=== PATIENT | female | born 1940 | race Caucasian/White ===

== ENCOUNTER → 2021-06-22 | Outpatient (CLI) | payer MEDICARE ==
[2021-02-10 11:30] VITALS: BP 162/81
[~2021-06-22] MED LIST: ASPI-630 PO; ATOR40TA59 PO; BUDE10.2 IH; HYDR-2145 PO; HYDR-2761 PO; ISOS30TA68 PO; LISI-379 PO; LISI10TA16 PO; MAGN400C PO; MELA5TAB20 PO; METF10007 PO; METO50TA6 PO; PRAS10TA9 PO; PROAIR RESPICL90 MCG IH; VIT1TABL34 PO; VIT1TABL8 PO; Vitamin D; glucosamine
--- NOTE | 2021-06-22 12:52 | PDOC1 ---
INITIAL PAIN CONSULT DATE OF SERVICE: DOS: DATE: 06/22/21 TIME: 12:46 CHIEF COMPLAINT: Chief Complaint: Left hip joint pain HISTORY OF PRESENT ILLNESS: 80-year-old female presents with history of pain in the left hip and low back for about 2 years getting worse with walking standing much worse with standing in one place or climbing on a stair or a step and put all her weight on her left leg patient reports significant pain not only in the posterior hip and gluteus but also into the groin significantly on the left side patient reports right side is generally not tender patient reports the pain is getting worse on the left side with walking standing better with sitting or laying down but has been waking her from sleep if she rolls onto her left side or change positions and happens about four times a night patient reports is not effective bowel bladder control but does affect ability to walk significantly she is not use any assistive devices however to ambulate this time patient has done some therapy in the distant past and is doing some stretching and strengthening on her own but has not decreased the pain significantly patient reports Aleve and hydrocodone which she is taking do decrease the pain fairly significantly by about 50% patient is had no formal physical therapy recently patient reports her disability rating 0-10 10 being worse is a five with family responsibilities recreation occupation sexual behavior and self-care zero with life support activity and to with social activity. Patient did have films of the hip showing a moderate degenerative change of the left hip with prominence of the left femoral head neck junction. Patient scribes pain is sharp and aching stabbing can be throbbing and shooting at times in the hip and groin is aching as well. Patient reports no loss of motor function but significant fatigability of the left leg with standing and walking. PAST MEDICAL HISTORY: PMH: COPD, hypertension, arthritis, diverticulosis, gastritis, coronary artery disease, skin cancer PREVIOUS SURGERIES: Past Surgical Hx: Coronary stent placement, bilateral cataract extractions CURRENT MEDICATIONS: Current Meds: Active Scripts Medications Dose Route/Sig Max Daily Dose Days Date Category Melatonin 5 Mg Tab.rapdis 1 Tab PO QHS 30 06/22/21 Reported Preservision Areds Tablet (Vit A/Vit C/Vit E/Zinc/Copper) 1 Each Tablet 1 Tab PO DAILY 30 06/22/21 Reported Magnesium (Magnesium Oxide) 400 Mg Capsule 1 Cap PO DAILY 06/22/21 Reported [Vitamin D] 2,000 Mg DAILY 06/22/21 Reported [glucosamine] 2,000 Mg DAILY 06/22/21 Reported Lisinopril 10 Mg Tablet 1 Tab PO DAILY 02/10/21 Reported Effient (Prasugrel Hcl) 10 Mg Tablet 10 Mg PO DAILYWBKFT 30 02/10/21 Rx Isosorbide Mononitrate Er (Isosorbide Mononitrate) 30 Mg Tab.er.24h 1 Tab PO DAILY 02/08/21 Reported Metoprolol Tartrate 50 Mg Tablet 1 Tab PO BID 02/08/21 Reported Metformin Hcl 1,000 Mg Tablet 1,000 Mg PO BIDWMEALS 02/08/21 Reported Symbicort 160-4.5 Mcg Inhaler (Budesonide/Formoterol Fumarate) 10.2 Gm Hfa.aer.ad 2 Puff IH BID 02/08/21 Reported Atorvastatin Calcium 40 Mg Tablet 40 Mg PO HS 02/08/21 Reported Proair Respiclick (Albuterol Sulfate) 90 Mcg Aer.pow.ba 2 Puff IH PRN Q4-6HRS PRN 02/08/21 Reported ALLERGIES; Allergies: Coded Allergies: No Known Drug Allergies (Unverified , 02/08/21) FAMILY HISTORY: Family Hx: Cancer, heart disease SOCIAL HISTORY: Social Hx: Patient drinks alcohol 2-3 times a year does not smoke not use any illegal illicit or recreational drugs is lives with her spouse lives locally in [facility] REVIEW OF SYSTEMS: ROS: Positive for those items mentioned in history of present illness, all systems are reviewed, otherwise negative ,and are complete full and well-documented on patient's chart. PHYSICAL EXAM: VS: Blood pressure is 137/72 pulse 67 respiration 16 temperature 90.5 F height is 5 foot 4-1/2 inches weight is 197 pounds PE: PHYSICAL EXAMINATION: GENERAL: The patient is awake, alert, oriented, appropriate, very pleasant in demeanor HEENT: Shows normocephalic, atraumatic. Extraocular movements are intact and symmetrical. Oral cavity: Mucous membranes moist and pink. NECK: Shows anterior throat supple without palpable lymphadenopathy noted. Swallow reflex symmetrical. CHEST: Shows normal on inspection. Breath sounds are clear bilaterally, distant but no rales or rhonchi. HEART: Shows S1, S2 clear. No murmurs auscultated. ABDOMEN: Soft, nontender, nondistended, obese. No palpable organomegaly is noted. BACK: Shows spine grossly in the midline. Normal-appearing cervical lordotic curvature. There is increased thoracic kyphosis, some flattening of the lumbar lordotic curvature. Lumbar paraspinous muscles show symmetrical on inspection, on palpation shows some moderate tenderness diffusely throughout the upper, middle and lower distribution of the paraspinous muscles bilaterally and also into the lower thoracic paraspinous musculature, firm and tender, but without specific trigger points, without radiation of pain. The patient has good rotational motion of the lumbar spine, both laterally as well as extension and flexion without significant difficulty. EXTREMITIES: Lower extremities show deep tendon reflexes 1+ in the patellar and tendo calcaneus tendons. Motor exam is five on a scale of 5 with right dorsiflexion, extension, quadriceps and hamstring flexion and four/5 on the left. Peripheral pulses are 1+ posterior tibial. No peripheral edema is noted bilaterally. Lower extremities are warm and dry to touch, equal in color and appearance. Bull's maneuver is positive on the left with external rotation and displacement posteriorly of the left hip right side is negative. SKIN: Shows warm and dry, good turgor. No edema. No sores, rashes or bruising throughout. IMPRESSION: Impression: 80-year-old female with approximate 2-year history increasing pain left hip and groin as well as low back X-rays left hip joint as noted Hypertension Arthritis Diverticulosis gastritis Type 2 diabetes Anticoagulation therapy Plan: Options were discussed the patient including serve medical managements physical therapies interventional techniques. Patient would like to pursue injection techniques, we discussed a left intra-articular hip joint injection using description as well as anatomical models described the procedure. We will contact patient's oven press tender to see if it is deemed safe and appropriate to hold her Effient for 7 days prior to intra-articular hip joint injection. Patient continue take the medication until we hear back from her oven press tender regarding this issue. QUENTIN JAMES MD Jun 22, 2021 12:52
== END | disposition home or self-care (01) ==
LOC: PNCL 09:29
PROVIDERS: ATTEND Anesthesiology
DX: M25.552 Pain in left hip (principal); J44.9 Chronic obstructive pulmonary disease, unspecified; I10 Essential (primary) hypertension; M19.90 Unspecified osteoarthritis, unspecified site; I25.10 Atherosclerotic heart disease of native coronary artery without angina pectoris; E11.9 Type 2 diabetes mellitus without complications; E78.00 Pure hypercholesterolemia, unspecified; K21.9 Gastro-esophageal reflux disease without esophagitis; Z85.828 Personal history of other malignant neoplasm of skin; Z87.891 Personal history of nicotine dependence; Z79.01 Long term (current) use of anticoagulants; Z79.84 Long term (current) use of oral hypoglycemic drugs; Z79.899 Other long term (current) drug therapy; Z98.890 Other specified postprocedural states; Z82.49 Family history of ischemic heart disease and other diseases of the circulatory system
CPT/HCPCS: 99214; G0463

== ENCOUNTER → 2021-07-12 | Outpatient (CLI) | payer MEDICARE ==
[2021-02-10 11:30] VITALS: BP 162/81
[~2021-07-12] MED LIST changes: +BUPIVACAINE MPF 0.25% 10 ML VIAL. ONE; +IOHEXOL 180 MG/ML 10 ML VIAL. ONE; +methylPREDNISolone ACETATE 80 MG/ML VIAL. ONE
--- NOTE | 2021-07-12 12:47 | PDOC ---
Progress Note - Pain Clinic Date of Service: DOS: DATE: 07/12/21 TIME: 12:44 Diagnosis: Dx: Left hip joint pain with osteoarthritis History or Present Illness: HPI: 80-year-old female with history pain left hip with walking standing and osteoarthritis of the hip now off of her Effient for 8 days patient reports no significant pain in the left hip with walking standing put all of her weight on 1 leg with pain rating to the left groin patient reports a 4 to scale 10 is worse over the past week 3 on average 1 its least and is a 3 today patient reports better with sitting or laying down generally does not awaken her from sleep at night but can if she lays on her left side patient reports she did try Medrol Dosepak which helped for the first few days but then was about the same on pain in her hip is aching and sharp shooting radiating into the left groin again with weightbearing almost essentially only with occasional with long time sitting greater than 1 hour can cause the pain to increase as well patient reports no deficits. Physical Exam: VS: Blood pressure 144/72 pulse 69 respirations 20 temperature 98.6 Height is 5 foot 4 inches weight is 194 pounds PE: PHYSICAL EXAMINATION: GENERAL: The patient is awake, alert, oriented, appropriate, very pleasant in demeanor HEENT: Shows normocephalic, atraumatic. Extraocular movements are intact and symmetrical. Oral cavity: Mucous membranes moist and pink. NECK: Shows anterior throat supple without palpable lymphadenopathy noted. Swallow reflex symmetrical. CHEST: Shows normal on inspection. Breath sounds are clear bilaterally. HEART: Shows S1, S2 clear. No murmurs auscultated. ABDOMEN: Soft, nontender, nondistended. No palpable organomegaly is noted. BACK: Shows spine grossly in the midline. Normal-appearing cervical lordotic curvature. There is slightly increased thoracic kyphosis, some minor flattening of the lumbar lordotic curvature. Lumbar paraspinous muscles show symmetrical on inspection, on palpation shows some moderate tenderness diffusely throughout the upper, middle and lower distribution of the paraspinous muscles without specific trigger points, without radiation of pain. The patient has good rotational motion of the lumbar spine, both laterally as well as extension and flexion without significant difficulty. EXTREMITIES: Lower extremities show deep tendon reflexes 1 in the patellar and tendo calcaneus tendons. Motor exam is 5 on a scale of 5 with right dorsiflexion, extension, quadriceps and hamstring flexion and 4/5 on the left. Peripheral pulses are 1+ posterior tibial. No peripheral edema is noted bilaterally. Lower extremities are warm and dry to touch, equal in color and appearance. Bull's maneuver is positive on the left with external rotation and posterior displacement right side is negative. SKIN: Shows warm and dry, good turgor. No edema. No sores, rashes or bruising throughout. Procedure: Procedure: Options were discussed with the patient. Patient chart was reviewed as her current medication regimen updated current review of systems updated today as well. We will proceed with a left intra-articular hip joint injection today with fluoroscopic guidance. Risks discussed including but not limited to bleeding infection possibility of intravascular injection sequelae spread local anesthetic numbness side effects steroid medication exposure fluoroscopy and poor results regarding pain control. Patient understands wished to proceed. Patient return to clinic in approximately 1 month follow-up, was counseled as return appointment, activity level, and side effect to be aware of. Medication Injected: Med Injected: Under sterile prep and drape patient in supine position patient's left hip was visualized using C-arm fluoroscopic guidance. Using 1% lidocaine area lateral to the hip joint was anesthetized and using direct fluoroscopic vision 22-gauge 5 inch Quincke needle with stylette was then advanced under direct fluoroscopic guidance into the left intra-articular hip joint. 3 cc of contrast was used to show good spread within the hip joint itself and without washout or uptake. At this time, 3 cc 0.25% bupivacaine and 80 mg Depo-Medrol was then injected into the hip joint. Needle was withdrawn and sterile bandage was applied. Patient tolerated procedure well and had no complications. Condition at Discharge: Condition at Discharge: Condition at discharge stable, patient tolerated the procedure well and had no complications. QUENTIN JAMES MD Jul 12, 2021 12:47
--- NOTE | 2021-07-12 12:48 | PDOC4 ---
Procedure Note: ICD 10 Code: ICD 10 Code: M16.12 M2 5.552 Procedure Note: Patient was consented for left intra-articular hip joint injection with fluoroscopic guidance. Risk were discussed including but not limited to bleeding infection possibility of intravascular injection sequelae spread of local anesthetic and numbness side effects of steroid medication exposure fluoroscopy and poor results regarding pain control. Patient understands wished to proceed. Under sterile prep and drape patient in supine position patient's left hip was visualized using C-arm fluoroscopic guidance. Using 1% lidocaine area lateral to the hip joint was anesthetized and using direct fluoroscopic vision 22-gauge 5 inch Quincke needle with stylette was then advanced under direct fluoroscopic guidance into the left intra-articular hip joint. 3 cc of contrast was used to show good spread within the hip joint itself and without washout or uptake. At this time, 3 cc 0.25% bupivacaine and 80 mg Depo-Medrol was then injected into the hip joint. Needle was withdrawn and sterile bandage was applied. Patient tolerated procedure well and had no complications. QUENTIN JAMES MD Jul 12, 2021 12:48
== END | disposition home or self-care (01) ==
LOC: PNCL 11:06
PROVIDERS: ATTEND Anesthesiology
DX: M16.12 Unilateral primary osteoarthritis, left hip (principal); I25.10 Atherosclerotic heart disease of native coronary artery without angina pectoris; I10 Essential (primary) hypertension; E78.00 Pure hypercholesterolemia, unspecified; J44.9 Chronic obstructive pulmonary disease, unspecified; K21.9 Gastro-esophageal reflux disease without esophagitis; E11.9 Type 2 diabetes mellitus without complications; Z85.828 Personal history of other malignant neoplasm of skin; Z87.891 Personal history of nicotine dependence; Z79.84 Long term (current) use of oral hypoglycemic drugs; Z79.899 Other long term (current) drug therapy; Z98.890 Other specified postprocedural states
CPT/HCPCS: 20610; 77002; J1040; J3490; Q9965

== ENCOUNTER → 2021-09-07 | Outpatient (CLI) | payer MEDICARE ==
[2021-02-10 11:30] VITALS: BP 162/81
[~2021-09-07] MED LIST changes: -BUPIVACAINE MPF 0.25% 10 ML VIAL. ONE; -IOHEXOL 180 MG/ML 10 ML VIAL. ONE; -methylPREDNISolone ACETATE 80 MG/ML VIAL. ONE
--- NOTE | 2021-09-07 09:28 | PDOC ---
Progress Note - Pain Clinic Date of Service: DOS: DATE: 09/07/21 TIME: 09:24 Diagnosis: Dx: Left hip joint pain with osteoarthritis History or Present Illness: HPI: [id number] female returns for follow-up status post left intra-articular hip joint injection patient reports good relief for about 1 month left near 100% but the pain returned after about a month very gradually still not quite to baseline but still significant pain in the left hip with walking standing weightbearing putting all of her weight on her left leg such as stairs or steps and climbing patient reports no loss of motor function but significant tenderness with walking standing with pain in the posterior gluteus lateral thigh and radiating into the left groin with weightbearing. Patient reports pain is a 8 on scale 10 at its worst is a 5 on average to its least and is a 5 today. Patient reports no bowel or bladder incontinence but with sitting or laying down does not generally awaken her from sleep at night patient scribes the pain is aching and dull can be tight and shooting cramping stabbing radiating into the anterior thigh on the left side as well as the groin. Patient reports she is taking Aleve which helps only very minimally also arthritis strength Tylenol which is not helpful significantly at all. Discussed options with her and with her history of osteoarthritis and start new prescription medication of meloxicam 15 mg 1 tablet daily patient was given instructions well side effects beware with the new prescription medication. Physical Exam: VS: Blood pressure is 150/56 pulse 66 respirations 18 temperature 98.1 F height is 5 feet 4 inches weight 197 pounds. PE: PHYSICAL EXAMINATION: GENERAL: The patient is awake, alert, oriented, appropriate, very pleasant in demeanor HEENT: Shows normocephalic, atraumatic. Extraocular movements are intact and symmetrical. Oral cavity: Mucous membranes moist and pink. NECK: Shows anterior throat supple without palpable lymphadenopathy noted. Swallow reflex symmetrical. CHEST: Shows normal on inspection. Breath sounds are clear bilaterally, no rales rhonchi or wheezes auscultated. HEART: Shows S1, S2 clear. No murmurs auscultated. ABDOMEN: Soft, nontender, nondistended. No palpable organomegaly is noted. BACK: Shows spine grossly in the midline. Normal-appearing cervical lordotic curvature. There is slightly increased thoracic kyphosis, some minor flattening of the lumbar lordotic curvature. Lumbar paraspinous muscles show symmetrical on inspection, on palpation shows some moderate tenderness diffusely throughout the upper, middle and lower distribution of the paraspinous muscles without specific trigger points, without radiation of pain. The patient has good rotational motion of the lumbar spine, both laterally as well as extension and flexion without significant difficulty. No tenderness over the spinous processes, sacrum or sacroiliac regions. EXTREMITIES: Lower extremities show deep tendon reflexes 1+ in the patellar and tendo calcaneus tendons. Motor exam is 5 on a scale of 5 with right dorsiflexion, extension, quadriceps and hamstring flexion and 4/5 on the left. Peripheral pulses are 1+ posterior tibial. No peripheral edema is noted bilaterally. Lower extremities are warm and dry to touch, equal in color and appearance. Patient has positive Bull's maneuver on the left only. SKIN: Shows warm and dry, good turgor. No edema. No sores, rashes or bruising throughout. Procedure: Procedure: Options were discussed with patient. Patient's old chart was reviewed as her current medication regimen updated current review of systems updated today as well. We will hold on any further injections at this time per patient's choice. We discussed her medications and again we will start new prescription medication of meloxicam 15 mg daily. Patient is once again given instruction as well as side effects beware with the medication. Patient wishes to follow-up with her orthopedic surgeon and will follow up after that appointment with our office as well. Medication Injected: Med Injected: None Condition at Discharge: Condition at Discharge: Condition at discharge is stable. QUENTIN JAMES MD Sep 07, 2021 09:28
== END | disposition home or self-care (01) ==
LOC: PNCL 08:42
PROVIDERS: ATTEND Anesthesiology
DX: M16.11 Unilateral primary osteoarthritis, right hip (principal); I10 Essential (primary) hypertension; E78.00 Pure hypercholesterolemia, unspecified; J44.9 Chronic obstructive pulmonary disease, unspecified; K21.9 Gastro-esophageal reflux disease without esophagitis; E11.9 Type 2 diabetes mellitus without complications; Z85.828 Personal history of other malignant neoplasm of skin; Z79.84 Long term (current) use of oral hypoglycemic drugs; Z79.899 Other long term (current) drug therapy; Z98.890 Other specified postprocedural states; Z87.891 Personal history of nicotine dependence
CPT/HCPCS: 99212; G0463

== ENCOUNTER → 2021-10-18 | Outpatient (CLI) | payer MEDICARE ==
[2021-02-10 11:30] VITALS: BP 162/81
[~2021-10-18] MED LIST changes: +CHOL5000 PO; +GLUC1TAB33 PO; +MELO7.5T29 PO; +UBID50TA PO
[2021-10-18 09:02] LABS: BASO # 0.1 x10^3/uL (0.0-0.2); BASO % 1 % (0-3); EOS # 0.2 x10^3/uL (0.0-0.7); EOS % 3 % (0-3); HEMATOCRIT 35.8 % (36.0-47.0); HEMOGLOBIN 11.6 g/dL (12.0-15.5); LYMPH % 35 % (24-48); MEAN CORPUSCULAR HEMOGLOBIN 29 pg (25-35); MEAN CORPUSCULAR HGB CONC 32 g/dL (31-37); MEAN CORPUSCULAR VOLUME 91 fL (79-100); MONO # 0.6 x10^3/uL (0.0-1.1); MONO % 7 % (0-9); NEUT # 4.7 x10^3/uL (1.8-7.7); NEUT % 54 % (31-73); PLATELET COUNT 275 x10^3/uL (140-400); RED BLOOD COUNT 3.93 x10^6/uL (3.50-5.40); RED CELL DISTRIBUTION WIDTH 14.4 % (11.5-14.5); WHITE BLOOD COUNT 8.6 x10^3/uL (4.0-11.0)
[2021-10-18 09:11] LABS: PROTHROMBIN TIME PATIENT 12.4 SEC (11.7-14.0)
[2021-10-18 09:21] LABS: ALBUMIN 3.4 g/dL (3.4-5.0); CALCIUM 8.6 mg/dL (8.5-10.1); CREATININE 1.1 mg/dL (0.6-1.0); GFR 47.6; POTASSIUM 4.2 mmol/L (3.5-5.1)
--- NOTE | 2021-10-18 15:54 | RAD ---
EXAMINATION: XR CHEST 2V CLINICAL HISTORY: Preoperative clearance. EXAM DATE/TIME: 10/18/2021 12:43 PM COMPARISON: 02/07/2021 FINDINGS: Lines, Tubes, and Devices: None. Cardiomediastinal Silhouette: Heart size at upper limits of normal. Aortic atherosclerotic calcificat ion. Lungs and Pleura: Mild bibasilar opacities. No definite pleural effusion. Pulmonary vasculature unrem arkable. Bones and Soft Tissues: Degenerative changes and partially visualized S-shaped scoliotic curvature in the thoracolumbar spine. IMPRESSION: Mild by basilar opacities, possibly subsegmental atelectasis and/or scarring. Electronically signed by: Nic Dozier DO (10/18/2021 3:52 PM) [id number]
[2021-10-19 00:08] LABS: HEMOGLOBIN A1C 7.4 % (4.8-5.6)
== END ==
LOC: SURGPAT 12:00
PROVIDERS: ATTEND Orthopaedic Surgery
DX: Z01.818 Encounter for other preprocedural examination (principal); I70.0 Atherosclerosis of aorta; M41.85 Other forms of scoliosis, thoracolumbar region; M16.12 Unilateral primary osteoarthritis, left hip
CPT/HCPCS: 36415; 71046; 80048; 82040; 82306; 83036; 85025; 85610; 85651; 85730; 87641

== ENCOUNTER 2021-11-08 08:35 | Day surgery (SDC) | payer MEDICARE ==
[2021-10-20 11:54] VITALS: BP 163/74
[~2021-11-08] VITALS: Ht 165.1 cm; Wt 88.6 kg
[~2021-11-08 08:35] MED LIST changes: +ACETAMINOPHEN 500 MG TABLET PO PRN; +GABAPENTIN 300 MG CAPSULE. PO PRN; +HYDROmorphone 2 MG/ML INJ. IVP PRN; +IV RINGERS,LACTATED 1000ML 1,000 ML IV SCH; +MELOXICAM 7.5 MG TABLET PO PRN; +MORPHINE SULFATE 2 MG/ML INJ. IVP PRN; +PROCHLORPERAZINE 10 MG/2 ML VIAL. IVP PRN; +TRANEXAMIC ACID 1,000 MG in IV NS 50ML -- 1ST BAG INJ ONE; +TRANEXAMIC ACID 1,000 MG in IV NS 50ML -- 2ND BAG INJ ONE; +TV=62ml MORPHINE 5 MG, KETOROLAC 30 MG, ROPIV, EPI INT ART ONE; +fentaNYL PF VIAL 100 MCG/2 ML VIAL IVP PRN
[2021-11-08 09:08] VITALS: BP 190/89
[2021-11-08] MEDS ORDERED: SCOPOLAMINE 1.5MG PATCH. TD ONE (09:15)
[2021-11-08] MEDS ORDERED: INSULIN LISPRO 100 UNIT/ML 3ML VIAL for OP,RR ONLY. SQ PRN (09:30)
[2021-11-08] MEDS ORDERED: INSULIN LISPRO 100 UNIT/ML 3ML VIAL for OP,RR ONLY. SQ ONE (09:30)
[2021-11-08] MEDS ORDERED: ONDANSETRON PF 4 MG/2 ML VIAL. ONE (09:39)
[2021-11-08] MEDS ORDERED: PROPOFOL 10 MG/ML (20ML) VIAL. IV ONE (09:39)
[2021-11-08] MEDS ORDERED: SEVOFLURANE 61 TO 120 MINUTES. IH ONE (09:39)
[2021-11-08] MEDS ORDERED: DEXAMETHASONE SOD PHOS 4 MG/ML VIAL ONE (09:39)
[2021-11-08] MEDS ORDERED: PHENYLEPHRINE 10 MG/ML VIAL. ONE (09:39)
[2021-11-08] MEDS ORDERED: fentaNYL PF VIAL 100 MCG/2 ML VIAL ONE (09:39)
[2021-11-08] MEDS ORDERED: LIDOCAINE 2% PF 5 ML VIAL. ONE (09:39)
[2021-11-08] MEDS ORDERED: TRANEXAMIC ACID in NS IVPB 100 ML ONE (10:11)
[2021-11-08] MEDS ORDERED: SUCCINYLCHOLINE 200 MG/10 ML VIAL. ONE (10:44)
[2021-11-08] MEDS ORDERED: 0.9 % SODIUM CHLORIDE 10 ML DISP.SYRIN. IV PRN (10:45)
[2021-11-08] MEDS ORDERED: oxyCODONE IR 5 MG TABLET PO PRN (10:45)
[2021-11-08] MEDS ORDERED: IV DEXTROSE 5% 250 ML BAG. IV PRN (10:45)
[2021-11-08] MEDS ORDERED: diphenhydrAMINE 50 MG/ML VIAL IVP PRN (10:45)
[2021-11-08] MEDS ORDERED: DEXTROSE 50% 25 GM / 50ML DISP.SYRIN. IV PRN (10:45)
[2021-11-08] MEDS ORDERED: MORPHINE SULFATE 2 MG/ML INJ. IVP PRN (10:45)
[2021-11-08] MEDS ORDERED: CALCIUM CARBONATE 500 MG TAB.CHEW PO PRN (10:45)
--- NOTE | 2021-11-08 10:50 | PDOC4 ---
SHANA SALDAÑA Nov 08, 2021 10:50
[2021-11-08] MEDS ORDERED: ROCURONIUM 50 MG/5 ML VIAL. ONE (10:52)
--- NOTE | 2021-11-08 10:52 | NUR ---
Scopolamine patch was removed after further discussion with anesthesia regarding post op N/V. Patient clarified reaction is usually after received nitrous gas after dental procedures only.
--- NOTE | 2021-11-08 11:14 | DISCH ---
DISCHARGE INSTRUCTIONS Condition on Discharge Condition on Discharge: Stable Activity After Discharge Activity Instructions for Disc: No restrictions, Resume previous activity, Activity as tolerated Diet after Discharge Diet after Discharge: Cardiac, Diabetic No Calorie Level Contacting the after DC Call your doctor for: If your condition worsens Follow-Up Follow up with: Ortho clinic to reschedule surgery. [phone] SHANA SALDAÑA Nov 08, 2021 11:14
[2021-11-08] MEDS ORDERED: SUGAMMADEX SODIUM 200 MG/2 ML VIAL. IVP ONE (11:15)
[2021-11-08] MEDS ORDERED: ONDANSETRON PF 4 MG/2 ML VIAL. IVP SCH (12:00)
[2021-11-08] MEDS ORDERED: ONDANSETRON ODT 4 MG TAB.RAPDIS. PO SCH (12:00)
[2021-11-08 12:02] VITALS: BP 136/78
--- NOTE | 2021-11-08 14:58 | HP ---
DATE OF SERVICE: 11/08/2021 ADMIT DATE: 11/08/2021 REASON FOR EVALUATION TODAY: Left hip pain, severe degenerative joint disease of left hip. BRIEF HISTORY: The patient is an 81-year-old female who has had unremitting pain in her left hip, has undergone multiple nonoperative interventions, but due to the fact that she is having significant difficulties with activities of daily living, she would like to undergo a left total hip arthroplasty. She has been told in the past that her only option is surgical, since nonsurgical is not helping at this point and she is not getting sleep or having the ability again to do ADLs. REVIEW OF SYSTEMS: Unremarkable other than her current musculoskeletal symptoms. MEDICAL HISTORY: Hypertension, hyperlipidemia, type 2 diabetes, COPD, coronary artery disease. SURGICAL HISTORY: She denies any past surgical history. FAMILY HISTORY: Hypertension. SOCIAL HISTORY: She is a former smoker, tobacco user, but not currently over the last 10+ years. No alcohol use. MEDICATIONS: Include meloxicam, aspirin, prasugrel, metoprolol as well as lisinopril, isosorbide mononitrate. MEDICATION ALLERGIES: No known drug allergies. PHYSICAL EXAMINATION: She is 66 inches tall, 198 pounds. She has regular rate and rhythm and lung tovar are clear to auscultation in all tovar. Abdomen is soft and nontender. The hip has 0 degrees of internal rotation, approximately 15 degrees of external rotation and abduction. Flexion, has slight contracture, but flexing is up to 95 degrees at this point, but very painful throughout the arc of motion, especially with any internal and external rotation. There is no atrophy of musculature, left lower extremity versus right lower extremity. Distal neurovascular status appears to be fully intact at this point. IMAGING DATA: X-rays show a severe amount of degenerative changes to the left hip. IMPRESSION: Severe degenerative joint disease, left hip. PLAN: At this time, we have gone over again the risks, complications as well as benefits and expectations of surgery, postoperative protocol and followup. She has talked with Anesthesia this morning. We will go ahead and proceed with a left total hip arthroplasty at this point. JUNIOR/EVY DR: Hayder TID: [id number]
[2021-11-09] MEDS ORDERED: ENOXAPARIN 40 MG/0.4 ML SYRINGE. SQ SCH (06:00)
[2021-11-09] MEDS ORDERED: MAGNESIUM HYDROXIDE 2,400 MG/30 ML ORAL.SUSP. PO PRN (06:00)
[2021-11-09] MEDS ORDERED: SENNOSIDES/DOCUSATE 8.6/50MG TABLET. PO SCH (09:00)
[2021-11-09] MEDS ORDERED: BISACODYL 10 MG SUPP.RECT. PR PRN (16:00)
[2021-11-12] MEDS ORDERED: ACETAMINOPHEN 500 MG TABLET PO SCH (09:00)
--- NOTE | 2021-11-12 12:13 | PDOC4 ---
OPERATIVE NOTE Date: Date: Nov 08, 2021 Pre-Op Diagnosis: djd left hip Post-Op Diagnosis: same Procedure Performed: Surgery could not be performed secondary to the patient being unable to be intubated by the department of anesthesia after multiple attempts. It was therefore safer for the patient to be returned back to postoperative area and unfortunately procedure not proceeding Surgeon: Jj Anesthesia Type: General attempted Blood Loss: 0 Specimans Obtained: 0 Findings: Surgery not performed ARIES RAMOS Jr. DO Nov 12, 2021 12:13
== END 2021-11-08 12:18 | disposition home or self-care (01) ==
LOC: SURG 08:35
PROVIDERS: ATTEND Orthopaedic Surgery
DX: M25.552 Pain in left hip (principal); Z53.8 Procedure and treatment not carried out for other reasons; M16.12 Unilateral primary osteoarthritis, left hip; I10 Essential (primary) hypertension; E11.9 Type 2 diabetes mellitus without complications; I25.10 Atherosclerotic heart disease of native coronary artery without angina pectoris; J44.9 Chronic obstructive pulmonary disease, unspecified; E78.5 Hyperlipidemia, unspecified; K21.9 Gastro-esophageal reflux disease without esophagitis; Z85.828 Personal history of other malignant neoplasm of skin; Z79.84 Long term (current) use of oral hypoglycemic drugs; Z79.899 Other long term (current) drug therapy; Z98.890 Other specified postprocedural states; Z82.49 Family history of ischemic heart disease and other diseases of the circulatory system
CPT/HCPCS: 36415; 82962; 86850; 86900; 86901; A4213; A4930; A6258; A6550; J0171; J0330; J0690; J1100; J1815; J1885; J2270; J2370; J2405; J2704; J2795; J3010; J3490

== ENCOUNTER 2021-12-06 06:53 | Observation (INO) | payer MEDICARE ==
[~2021-12-06] VITALS: Ht 162.6 cm; Wt 88.6 kg
[2021-12-06] VITALS (9 sets, daily range): BP systolic 119–172; BP diastolic 54–77
[~2021-12-06 06:53] MED LIST changes: -HYDROmorphone 2 MG/ML INJ. IVP PRN; -IV RINGERS,LACTATED 1000ML 1,000 ML IV SCH; -MORPHINE SULFATE 2 MG/ML INJ. IVP PRN; -PROCHLORPERAZINE 10 MG/2 ML VIAL. IVP PRN; -TRANEXAMIC ACID 1,000 MG in IV NS 50ML -- 2ND BAG INJ ONE; -fentaNYL PF VIAL 100 MCG/2 ML VIAL IVP PRN
[2021-12-06] MEDS ORDERED: IV RINGERS,LACTATED 1000ML 1,000 ML IV SCH (07:00)
[2021-12-06] MEDS ORDERED: TRANEXAMIC ACID in NS IVPB 100 ML ONE (07:21)
[2021-12-06] MEDS ORDERED: MIDAZOLAM HCL/PF 2 MG/2 ML VIAL. ONE (07:39)
[2021-12-06] MEDS ORDERED: TRANEXAMIC ACID 1,000 MG in IV NS 50ML -- 2ND BAG INJ ONE (08:00)
[2021-12-06] MEDS ORDERED: PROPOFOL 10 MG/ML (20ML) VIAL. IV ONE (08:59)
[2021-12-06] MEDS ORDERED: DEXTROSE 50% 25 GM / 50ML DISP.SYRIN. IV PRN (09:00)
[2021-12-06] MEDS ORDERED: diphenhydrAMINE 50 MG/ML VIAL IVP PRN (09:00)
[2021-12-06] MEDS ORDERED: 0.9 % SODIUM CHLORIDE 10 ML DISP.SYRIN. IV PRN (09:00)
--- NOTE | 2021-12-06 09:42 | HP ---
DATE OF SERVICE: 12/06/2021 ADMIT DATE: 12/06/2021 PREOP HISTORY AND PHYSICAL CHIEF COMPLAINT: Left hip pain, severe. BRIEF HISTORY: The patient is an 81-year-old female who presents today with significant and unremitting left hip pain, which causes her to have difficulty with activities of daily living at this point. No injuries at this point but she has had multiple nonsurgical treatments including a steroid injection as well as with anti-inflammatories, ice and modification of activities, etc. She has significant nocturnal pain as well as pain with activities which are again significantly diminished secondary to that pain. REVIEW OF SYSTEMS: Unremarkable other than her current musculoskeletal complaints. PAST MEDICAL HISTORY: Hypertension, hyperlipidemia, type 2 diabetes, COPD, coronary artery disease and stent placement. PAST SURGICAL HISTORY: None. HOSPITALIZATIONS: For her shortness of breath and chest pressure. FAMILY HISTORY: Hypertension. SOCIAL HISTORY: The patient is a former smoker; however, has not smoked in over 10 years. No alcohol use at this point. MEDICATIONS: Include meloxicam and aspirin as well as mononitrate extended release. MEDICATION ALLERGIES: None. PHYSICAL EXAMINATION: She is 66 inches tall. She is 196 pounds. She is having significant pain with even log rolling of that hip, but flexion is up to 90 degrees with no flexion contracture noted at this point. However, she has 0 to may be 5 degrees of internal rotation at the most. External rotation is about 15 degrees today with abduction at about 15-20 degrees as well. There is significant pain throughout the arc of motion at this point as well as a significantly antalgic gait; however, no muscular changes of the left versus right lower extremity. Distal neurovascular status is fully intact. Heart is regular rate and rhythm. HEENT is within normal limits. Abdomen is soft and nontender. No other abnormalities noted. IMPRESSION: Severe degenerative joint disease, left hip. PLAN: At this time, we have talked with her at length about the treatment options again today as well as had her talk with Anesthesia. Due to the difficulty with intubation last time, they will proceed with a spinal anesthetic; however, they have prepared for the possibility of intubation if necessary. They have already gone over the risks and benefits of that, I have gone over the risks, complications as well as benefits and expectations of surgery, postoperative protocol and followup for left total hip arthroplasty. We will proceed as soon as she is done talking with Anesthesia. EWJ/TACO/MARIA DR: JORGE/azucena TID: [id number]
[2021-12-06] MEDS: ASPIRIN 325 MG TABLET PO SCH ×2 (10:00→21:37)
[2021-12-06] MEDS: SENNOSIDES/DOCUSATE 8.6/50MG TABLET. PO SCH (10:00)
--- NOTE | 2021-12-06 10:15 | PDOC4 ---
OPERATIVE NOTE Date: Date: December 06, 2021 Pre-Op Diagnosis: Severe degenerative joint disease left hip Post-Op Diagnosis: Same Procedure Performed: Left total hip arthroplasty Surgeon: Jj Anesthesia Type: Spinal with IV sedation Blood Loss: 150 cc Specimans Obtained: Left femoral head Findings: Size 4 femur 50 mm acetabular shell D acetabular liner -536 mm femoral head Complications: None Operative Note: Patient was taken to the operative suite where given a spinal anesthetic placed in a lateral decubitus position with the affected left hip upright. Pads were placed in appropriate position as well as an axillary roll. The left hip was then prepped and draped in a sterile fashion a standard anterolateral approach to the hip was undertaken with incision through skin subcutaneous tissues superficial bleeding was coagulated using a Bovie knife and this was taken down to the iliotibial band which was split in line with the skin incision. This was retracted anteriorly and posteriorly and following this gluteus medius was identified and inferior one third was removed at this point. This was retracted superiorly. In the Capsule was then identified and opened up in an H fashion. There were noted to be severe changes on the femoral head as well as significant bone osteophytes from the femoral head as well hip was manually dislocated using a bone hook. 1 fingerbreadth above the lesser trochanter and marked on the area just under the greater trochanter area cut was made in the femur to remove the femoral head and neck. This was measured noted to be 47 mm. Therefore after the labrum was removed and retractors were placed in appropriate position orientation reaming began at size 45 and continued up to size 50 due to the patient's age and bone quality 50 was noted be the most appropriate size therefore the after the good bleeding was noted in the acetabular side and this had been deep and slightly the femoral component was then impacted noted to be stable and secure within the acetabulum for further fixation 2 screws 1 of 30 and 1 of 25 mm in length were placed having good purchase. The liner was then placed. This was a neutral the liner. Following this the leg was placed in a side bag. This was opened up along near the proximal femur with a skiver box toe followed by the IM guide. These were subsequently removed and then following this broaching began at size 0 and continued all the way up to size 4 which is noted to be the most appropriate size filling the canal. Trialing with -5 revealed this to be the best stability and extremes in range of motion pistoning was excellent with 2 to 3 mm at maximum distance. This was stable and secure in all planes. This was then manually dislocated all trial components were removed from the femur the femoral component was then impacted noted to be stable and secure femoral head was then impacted -5mm 36 mm outer diameter head and then this was noted to be reduced appropriately within the cup this is noted be again extremes of range of motion very good stability and excellent stability. Pistoning again was very good therefore this was copiously irrigated and suctioned dry. This is and irrigated with Betadine solution followed by sterile saline. Once this was cleared the capsule was reapproximated using Ethibond the gluteus medius was reattached to its original insertion site along the area of the femur and then further irrigation and suctioning dry was done. The IT band was then closed in a running fashion. The superficial tissues and skin was reapproximated local was placed sterile dressings applied patient was then taken from the operative bed to the postoperative bed taken to the PACU in stable condition ARIES RAMOS Jr. DO December 06, 2021 10:15
[2021-12-06] MEDS: MORPHINE SULFATE 2 MG/ML INJ. IVP PRN ×4 (11:41→21:38)
[2021-12-06] MEDS: ONDANSETRON ODT 4 MG TAB.RAPDIS. PO SCH ×2 (12:00→18:25)
[2021-12-06] MEDS ORDERED: ONDANSETRON PF 4 MG/2 ML VIAL. IVP SCH (12:00)
[2021-12-06] MEDS: oxyCODONE IR 5 MG TABLET PO PRN (13:22)
[2021-12-06] MEDS: IV RINGERS,LACTATED 1000ML 1,000 ML IV SCH ×2 (14:11→23:55)
--- NOTE | 2021-12-06 16:12 | RAD ---
XR LT HIP (WITH OR WITHOUT PELVIS) 2 VIEWS History: Reason: s/p VISH / Spl. Instructions: / History: Technique: AP view the pelvis and additional view of the left hip. Comparison: None. Findings: Status post left total hip arthroplasty. Expected postoperative findings. No dislocation. No acute fr acture. Mild pubic symphysis degenerative changes. Impression: 1. Status post left total hip arthroplasty. No immediate hardware complications. Electronically signed by: Vikas Tyler DO (12/06/2021 4:10 PM) [id number]
[2021-12-07] MEDS: oxyCODONE IR 5 MG TABLET PO PRN ×4 (00:56→22:22)
[2021-12-07 03:00] VITALS: BP 137/63
[2021-12-07] MEDS: ONDANSETRON ODT 4 MG TAB.RAPDIS. PO SCH ×2 (05:56)
[2021-12-07] MEDS ORDERED: MAGNESIUM HYDROXIDE 2,400 MG/30 ML ORAL.SUSP. PO PRN (06:00)
[2021-12-07 07:00] VITALS: BP 141/61
[2021-12-07 08:24] LABS: HEMATOCRIT 30.2 % (36.0-47.0); HEMOGLOBIN 9.9 g/dL (12.0-15.5); RED BLOOD COUNT 3.27 x10^6/uL (3.50-5.40); RED CELL DISTRIBUTION WIDTH 13.3 % (11.5-14.5)
[2021-12-07 08:29] LABS: CALCIUM 7.8 mg/dL (8.5-10.1); CREATININE 1.1 mg/dL (0.6-1.0); GFR 47.6; POTASSIUM 4.6 mmol/L (3.5-5.1)
[2021-12-07] MEDS: ASPIRIN 325 MG TABLET PO SCH ×2 (08:39→22:21)
[2021-12-07] MEDS: SENNOSIDES/DOCUSATE 8.6/50MG TABLET. PO SCH (08:39)
--- NOTE | 2021-12-07 08:42 | PDOC ---
PROGRESS NOTES Date of Service DATE: 12/07/21 TIME: 08:29 Subjective Subjective POD #1 s/p L primary VISH Pt seen and examined this AM. Awake and alert sitting upright in recliner. Pain 3/10. Tolerating PO intake. Reports episode of dizziness with mobilization to bathroom yesterday, this has resolved. 1500 on IS. Voiding without difficulty. No acute events overnight. Objective Vital Signs Vital Signs Date Time Temp Pulse Resp B/P (MAP) Pulse Ox O2 Delivery O2 Flow Rate FiO2 12/07/21 07:52 Room Air 12/07/21 03:00 77 18 137/63 (87) 98 12/06/21 23:00 98.4 98.4 Physical Exam Orthopedic exam L hip: dressings intact. no drainage or discharge. Compartments soft and compressible. Calf non tender. Negative Jeevan's sign. Sensation to light touch intact. EHL/FHL intact. Plantarflexion/dorsiflexion intact. Cap refill brisk. LLE warm and perfused. No evidence of thrombus. Labs Laboratory Tests Test 12/06/21 07:25 12/06/21 11:30 12/07/21 06:50 POC SARS CoV-2 Antigen Negative (NEGATIVE) Glucose (Fingerstick) 112 mg/dL (70-99) White Blood Count 9.0 x10^3/uL (4.0-11.0) Red Blood Count 3.27 x10^6/uL (3.50-5.40) Hemoglobin 9.9 g/dL (12.0-15.5) Hematocrit 30.2 % (36.0-47.0) Mean Corpuscular Volume 92 fL (79-100) Mean Corpuscular Hemoglobin 30 pg (25-35) Mean Corpuscular Hemoglobin Concent 33 g/dL (31-37) Red Cell Distribution Width 13.3 % (11.5-14.5) Platelet Count 213 x10^3/uL (140-400) Laboratory Tests Test 12/06/21 11:30 12/07/21 06:50 Glucose (Fingerstick) 112 mg/dL (70-99) White Blood Count 9.0 x10^3/uL (4.0-11.0) Red Blood Count 3.27 x10^6/uL (3.50-5.40) Hemoglobin 9.9 g/dL (12.0-15.5) Hematocrit 30.2 % (36.0-47.0) Mean Corpuscular Volume 92 fL (79-100) Mean Corpuscular Hemoglobin 30 pg (25-35) Mean Corpuscular Hemoglobin Concent 33 g/dL (31-37) Red Cell Distribution Width 13.3 % (11.5-14.5) Platelet Count 213 x10^3/uL (140-400) Assessment Assessment 81 y/o F primary OA L hip s/p L primary VISH 12/06 - Jj * WBAT LLE * AL hip precautions x6 weeks post-op * Pain control (DC IV pain meds this morning) * DVT ppx (ASA 325mg BID) * Post-op abx (Cefazolin) * VSS stable this AM * AM labs (CBC, BMP) pending * ICE operative hip prn * Maintain surgical dressing L hip * PT/OT for mobilization, gait training and fall prevention * CM for discharge planning; pt lives at home with , will have work with therapy services today, anticipate home with home health services later this afternoon * Follow up with orthopedic clinic in 2 weeks. Call to schedule prior to d/c [phone]. Justicifation of Admission Dx: Justifications for Admission: Justification of Admission Dx: Yes SHANA SALDAÑA December 07, 2021 08:42
[2021-12-07 11:00] VITALS: BP 115/61
[2021-12-07] MEDS ORDERED: ALBUTEROL SULFATE 2.5 MG/3 ML NEBU. NEB PRN (11:45)
[2021-12-07] MEDS ORDERED: NON FORMULARY ITEM (Albuterol Sulfate (Proair Respiclick) 2 PUFF) IH PRN (11:45)
[2021-12-07] MEDS: ACETAMINOPHEN 500 MG TABLET PO SCH ×2 (12:46→17:54)
[2021-12-07 15:00] VITALS: BP 142/56
[2021-12-07] MEDS ORDERED: BISACODYL 10 MG SUPP.RECT. PR PRN (16:00)
[2021-12-07] MEDS: ALBUTEROL SULFATE 2.5 MG/3 ML NEBU. NEB SCH ×2 (16:05→20:00)
--- NOTE | 2021-12-07 17:10 | PATHOLOGY ---
[facility] Accession Number: [id number] . 01 Material submitted: . hip - L HIP BONE AND TISSUE . 01 Clinician provided ICD-10: M16.12 . 01 Clinical history: . SEVERE DEGENERATIVE JOINT DISEASE OA . 02 Diagnosis: Femoral head, left total hip arthroplasty: - Advanced degenerative arthritis. (JPM:pit; 12/07/2021) QTP 12/07/2021 1356 Local . 02 Electronically signed: . Cabrera Brandon MD, Pathologist NPI- [id number] . 01 Gross description: . The specimen is received in formalin, labeled "Hamdia Melgar hip bone tissue". Received is a femoral head with attached femoral neck measuring 4.5 x 4.5 x 4.4 cm in greatest dimensions. The articular surface is smooth to granular in appearance with evidence of eburnation. Moderate osteophytic lipping is identified. Sectioning reveals yellow-bansal cut surfaces with no grossly distinct nodules or lesions. The specimen is submitted representatively in cassette A1, following decalcification. ([facility]; 12/06/2021) QAC/QAC 12/06/2021 1528 Local . 02 Pathologist provided ICD-10: M16.12 . 02 CPT . 165216, [id number] Specimen Comment: A courtesy copy of this report has been sent to [phone] Specimen Comment: [id number] Specimen Comment: Report sent to / DR SMITH Specimen Comment: A duplicate report has been generated due to demographic updates. Performed at: [address], [place], [place] [id number] MD Fidencio Temple MD Phone: [phone] Performed at: 02 [facility] [address] [place], [place] [id number] MD Cabrera Brandon MD Phone: [phone]
[2021-12-07] MEDS: metFORMIN 500 MG TABLET PO SCH ×2 (17:55→17:57)
[2021-12-07 19:00] VITALS: BP 108/52
[2021-12-07] MEDS: BUDESONIDE 0.5 MG/2 ML NEBU. NEB SCH (20:00)
[2021-12-07] MEDS ORDERED: ATORVASTATIN CALCIUM 40 MG TABLET. PO SCH (21:00)
[2021-12-07] MEDS: METOPROLOL TART IMMED RELEASE 50 MG TABLET. PO SCH (21:00)
[2021-12-07] MEDS ORDERED: NON FORMULARY ITEM (Budesonide/Formoterol Fumarate (Symbicort 160-4.5 Mcg Inhaler) 2 PUFF) IH SCH (21:00)
[2021-12-07 23:17] VITALS: BP 116/54
[2021-12-08 03:20] VITALS: BP 125/61
[2021-12-08] MEDS: ACETAMINOPHEN 500 MG TABLET PO SCH ×3 (06:00→11:37)
[2021-12-08 07:15] VITALS: BP 133/57
[2021-12-08 07:39] LABS: HEMATOCRIT 27.6 % (36.0-47.0); HEMOGLOBIN 9.3 g/dL (12.0-15.5)
[2021-12-08] MEDS: BUDESONIDE 0.5 MG/2 ML NEBU. NEB SCH (07:49)
[2021-12-08] MEDS: ALBUTEROL SULFATE 2.5 MG/3 ML NEBU. NEB SCH ×3 (07:49→16:00)
[2021-12-08] MEDS ORDERED: PRASUGREL 10 MG TABLET. PO SCH (08:00)
--- NOTE | 2021-12-08 08:10 | PDOC ---
PROGRESS NOTES Date of Service DATE: 12/08/21 TIME: 08:08 Subjective Subjective POD #2 s/p L primary VISH Objective Vital Signs Vital Signs Date Time Temp Pulse Resp B/P (MAP) Pulse Ox O2 Delivery O2 Flow Rate FiO2 12/08/21 07:49 97 Room Air 12/08/21 03:20 98.4 78 18 125/61 (82) 98.4 Physical Exam Orthopedic exam L hip: dressings intact. no drainage or discharge. Compartments soft and compressible. Calf non tender. Negative Jeevan's sign. Sensation to light touch intact. EHL/FHL intact. Plantarflexion/dorsiflexion intact. Cap refill brisk. LLE warm and perfused. No evidence of thrombus. Labs Laboratory Tests Test 12/06/21 11:30 12/07/21 06:50 12/07/21 12:13 12/07/21 16:40 Glucose (Fingerstick) 112 mg/dL (70-99) 218 mg/dL (70-99) 195 mg/dL (70-99) White Blood Count 9.0 x10^3/uL (4.0-11.0) Red Blood Count 3.27 x10^6/uL (3.50-5.40) Hemoglobin 9.9 g/dL (12.0-15.5) Hematocrit 30.2 % (36.0-47.0) Mean Corpuscular Volume 92 fL (79-100) Mean Corpuscular Hemoglobin 30 pg (25-35) Mean Corpuscular Hemoglobin Concent 33 g/dL (31-37) Red Cell Distribution Width 13.3 % (11.5-14.5) Platelet Count 213 x10^3/uL (140-400) Sodium Level 139 mmol/L (136-145) Potassium Level 4.6 mmol/L (3.5-5.1) Chloride Level 104 mmol/L (98-107) Carbon Dioxide Level 25 mmol/L (21-32) Anion Gap 10 (6-14) Blood Urea Nitrogen 27 mg/dL (7-20) Creatinine 1.1 mg/dL (0.6-1.0) Estimated GFR (Cockcroft-Gault) 47.6 Glucose Level 156 mg/dL (70-99) Calcium Level 7.8 mg/dL (8.5-10.1) Test 12/07/21 20:40 12/08/21 07:00 Glucose (Fingerstick) 208 mg/dL (70-99) Hemoglobin 9.3 g/dL (12.0-15.5) Hematocrit 27.6 % (36.0-47.0) Mean Corpuscular Hemoglobin Concent 34 g/dL (31-37) Laboratory Tests Test 12/07/21 12:13 12/07/21 16:40 12/07/21 20:40 12/08/21 07:00 Glucose (Fingerstick) 218 mg/dL (70-99) 195 mg/dL (70-99) 208 mg/dL (70-99) Hemoglobin 9.3 g/dL (12.0-15.5) Hematocrit 27.6 % (36.0-47.0) Mean Corpuscular Hemoglobin Concent 34 g/dL (31-37) Assessment Assessment 81 y/o F primary OA L hip s/p L primary VISH 12/06 - Jj * WBAT LLE * AL hip precautions x6 weeks post-op * Pain control (DC IV pain meds this morning) * DVT ppx (ASA 325mg BID) * Post-op abx complete * VSS stable this AM * Hgb 9.3 this AM * ICE operative hip prn * Maintain surgical dressing L hip * PT/OT for mobilization, gait training and fall prevention * CM for discharge planning; pt lives at home with , possibly home with home health services today * Follow up with orthopedic clinic in 2 weeks. Call to schedule prior to d/c [phone]. Justicifation of Admission Dx: Justifications for Admission: Justification of Admission Dx: Yes SHANA SALDAÑA December 08, 2021 08:10
[2021-12-08] MEDS ORDERED: DOCU-109 PO (08:15)
[2021-12-08] MEDS ORDERED: HYDR-2759 PO (08:15)
[2021-12-08] MEDS ORDERED: ASPI325T8 PO (08:15)
[2021-12-08] MEDS ORDERED: ONDA4TAB12 PO (08:15)
--- NOTE | 2021-12-08 08:18 | DISCH ---
DISCHARGE INSTRUCTIONS Condition on Discharge Condition on Discharge: Stable Activity After Discharge Activity Instructions for Disc: Activity as tolerated, Progressive ambulation Other activity instructions: Anterior lateral hip precautions for 6 weeks postop Bathing Instructions: Shower-keep dressing dry, No Tub Bath until see Lifting Instructions after Dis: No heavy lifting, No pulling or pushing Exercise Instruction after Dis: Walk 10 min, 3 x per day Driving Instructions after Dis: Do not drive (While taking narcotic pain medication) Weight Bearing Status after Di: Full weight bearing Diet after Discharge Diet after Discharge: Cardiac, Diabetic No Calorie Level Wound Incision Care Wound/Incision Care: Ice to area for comfort, Keep wound/cast CDI Community/Resources/Services Services at Discharge: Home Health Care Services Contacting the DRChristopher after DC Call your doctor for: If your condition worsens Follow-Up Follow up with: Follow-up with orthopedic clinic in 1 to 2 weeks [phone] Treatment/Equipment after DC Adaptive Equipment Issued: SHANA Porter December 08, 2021 08:18
[2021-12-08] MEDS: metFORMIN 500 MG TABLET PO SCH (08:37)
[2021-12-08] MEDS: METOPROLOL TART IMMED RELEASE 50 MG TABLET. PO SCH (08:39)
[2021-12-08] MEDS: oxyCODONE IR 5 MG TABLET PO PRN (08:40)
[2021-12-08] MEDS: SENNOSIDES/DOCUSATE 8.6/50MG TABLET. PO SCH (08:41)
[2021-12-08] MEDS: ASPIRIN 325 MG TABLET PO SCH (08:42)
[2021-12-08] MEDS ORDERED: MAGNESIUM OXIDE 400 MG TABLET PO SCH (09:00)
[2021-12-08] MEDS ORDERED: CHOLECALCIFEROL (VITAMIN D3) 5,000 UNIT CAPSULE PO SCH (09:00)
[2021-12-08] MEDS ORDERED: LISINOPRIL 10 MG TABLET PO SCH (09:00)
[2021-12-08] MEDS ORDERED: ISOSORBIDE MONONITRATE ER 30 MG TAB.ER.24H PO SCH (09:00)
[2021-12-08 10:58] VITALS: BP 107/54
[2021-12-08 15:00] VITALS: BP 104/46
== END 2021-12-08 16:00 | disposition home health service (06) ==
LOC: SURG 06:53 → INTOOBSV 08:54 → 4 NORTH 08:54
PROVIDERS: ADMIT Orthopaedic Surgery; ATTEND Orthopaedic Surgery
DX: M16.12 Unilateral primary osteoarthritis, left hip (principal); Z20.822 Contact with and (suspected) exposure to COVID-19; I10 Essential (primary) hypertension; I25.10 Atherosclerotic heart disease of native coronary artery without angina pectoris; E11.9 Type 2 diabetes mellitus without complications; E78.5 Hyperlipidemia, unspecified; J44.9 Chronic obstructive pulmonary disease, unspecified; Z87.891 Personal history of nicotine dependence; Z95.5 Presence of coronary angioplasty implant and graft; Z79.899 Other long term (current) drug therapy; Z98.890 Other specified postprocedural states
CPT/HCPCS: 36415; 73502; 80048; 82962; 85014; 85018; 85027; 86850; 86900; 86901; 88304; 88311; 94640; 94760; 96365; 96366; 96375; 96376; A4213; A4930; A6258; A6550; C1776; G0378; G0379; J0171; J0690; J1885; J2250; J2270; J2704; J2795; J7120; 97116-GP; 97150-GP; 97530-GP; 97535-GO; J7613; J7626